=== PATIENT | female | born 1935 | race Caucasian/White ===

== ENCOUNTER 2016-09-13 16:16 | Emergency (ER) | payer BC ==
[2016-09-13] MEDS ORDERED: DIAZEPAM 5 MG/1 ML TUBX IVP ONE (16:49)
[2016-09-13 17:01] LABS: BASO % 0.8 % (0-6); EOS % 1.3 % (0-6); GRAN % 63.5 % (47-80); HEMATOCRIT 47.1 % (35.0-47.0); HEMOGLOBIN 15.6 gm/dl (11.6-16.0); LYMPH % 25.8 % (16-45); MEAN CELL VOLUME 90.9 fl (81-97); MEAN CORPUSCULAR HEMOGLOBIN 30.1 pg (27-33); MEAN CORPUSCULAR HGB CONC 33.1 g/dl (32-36); MEAN PLATELET VOLUME 9.6 fl (7.4-10.4); MONO % 8.6 % (0-9); PLATELET COUNT 372 K/uL (130-400); RED BLOOD COUNT 5.18 M/uL (3.80-5.40); RED CELL DISTRIBUTION WIDTH 14.5 % (11.5-14.5); WHITE BLOOD COUNT W/O DIFF 8.3 K/uL (4.2-12.2)
--- NOTE | 2016-09-13 17:09 | Emergency Department Record ---
History of Present Illness - General Chief Complaint: Fainted Stated Complaint: SYNCOPE Time Seen by Provider: 09/13/16 16:49 Source: Patient, RN notes reviewed Mode of Arrival: EMS - History of Present Illness Initial Comments: patient had pain in her legs and walked to [employer] and passed out at [employer] and was out for two minutes and no seizure activity and no chest pain and she is not on blood thinners. Patient is talking appropriately till done. Onset/Timin -: Minutes(s) Prodromal Symptoms: Lightheaded Duration of Episode: 3 -: Minutes(s) Injuries Sustained Associated with Event: LUE Current Symptoms: Other Treatments Prior to Arrival: None - Jamar Coma Scale Eye Response: (4) Open spontaneously Motor Response: (6) Obeys commands Verbal Response: (5) Oriented Jamar Total: 15 - Related Data Home Medications Medication Instructions Recorded Confirmed Last Taken Amlodipine Besylate [Norvasc] 5 mg PO DAILY 09/18/14 09/13/16 09/13/16 Hydrochlorothiazide [Hctz 25Mg] 25 mg PO DAILY 09/18/14 09/13/16 09/13/16 Naproxen Sodium [Anaprox Ds] 550 mg PO Q6H PRN 09/18/14 09/13/16 09/13/16 Polyethylene Glycol 3350 17 gm PO DAILY 09/18/14 09/13/16 09/13/16 Simvastatin [Zocor] 5 mg PO QHS 09/18/14 09/13/16 09/13/16 Allergies Allergy/AdvReac Type Severity Reaction Status Date / Time acetaminophen Allergy Intermediate RASH Verified 09/13/16 16:35 hydrocodone Allergy Intermediate RASH Verified 09/13/16 16:35 Sulfa (Sulfonamide Allergy Intermediate RASH Verified 09/13/16 16:35 Antibiotics) Travel Screening - Travel/Exposure Within Last 30 Days Have you traveled within the last 30 days?: No Review of Systems Reviewed: No additional complaints except as noted below Constitutional: Reports: As per HPI. Denies: Chills, Fever, Malaise, Night sweats, Weakness, Weight change Eyes: Reports: As per HPI. Denies: Eye discharge, Eye pain, Photophobia, Vision change ENT: Reports: As per HPI. Denies: Congestion, Dental pain, Ear pain, Epistaxis , Hearing loss, Throat pain Respiratory: Reports: As per HPI. Denies: Cough, Dyspnea, Hemoptysis, Stridor, Wheezes Cardiovascular: Reports: As per HPI. Denies: Arrhythmia, Chest pain, Dyspnea on exertion, Edema, Murmurs, Orthopnea, Palpitations, Paroxysmal nocturnal dyspnea, Rheumatic Fever, Syncope Endocrine: Reports: As per HPI. Denies: Fatigue, Heat or cold intolerance, Polydipsia, Polyuria Gastrointestinal: Reports: As per HPI. Denies: Abdominal pain, Constipation, Diarrhea, Hematemesis, Hematochezia, Melena, Nausea, Vomiting Genitourinary: Reports: As per HPI. Denies: Abnormal menses, Discharge, Dyspareunia, Dysuria, Frequency, Hematuria, Incontinence, Retention, Urgency Musculoskeletal: Reports: As per HPI. Denies: Arthralgia, Back pain, Gout, Joint swelling, Myalgia, Neck pain Skin: Reports: As per HPI. Denies: Bruising, Change in color, Change in hair/ nails, Lesions, Pruritus, Rash Neurological: Reports: As per HPI. Denies: Abnormal gait, Confusion, Headache, Numbness, Paresthesias, Seizure, Tingling, Tremors, Vertigo, Weakness Psychiatric: Reports: As per HPI. Denies: Anxiety, Auditory hallucinations, Depression, Homicidal thoughts, Suicidal thoughts, Visual hallucinations Hematological/Lymphatic: Reports: As per HPI. Denies: Anemia, Blood Clots, Easy bleeding, Easy bruising, Swollen glands Past Medical History - SOCIAL HISTORY Smoking Status: Never smoker Alcohol Use: None Drug Use: None - RESPIRATORY Hx Respiratory Disorders: No - CARDIOVASCULAR Hx Cardio Disorders: Yes Hx Hypertension: Yes - NEURO Hx Neuro Disorders: No - GI Hx GI Disorders: Yes Hx Hiatal Hernia: Yes Hx Irritable Bowel: Yes - Hx Genitourinary Disorders: No - ENDOCRINE Hx Endocrine Disorders: No - MUSCULOSKELETAL Hx Musculoskeletal Disorders: Yes Hx Fibromyalgia: Yes - PSYCH Hx Psych Problems: No - HEMATOLOGY/ONCOLOGY Hx Hematology/Oncology Disorders: Yes Hx Cancer: Yes (left breast) Hx Chemotherapy: No Hx Radiation Therapy: No Family Medical History Any Significant Family History?: Yes Hx Cancer: Mother, Brother/Sister, Grandparents Physical Exam - General General Appearance: Alert, Oriented x3, Cooperative, No acute distress - Head Head exam: Normal inspection - Eye Eye exam: Normal appearance, PERRL Pupils: Normal accommodation - ENT ENT exam: Normal exam, Mucous membranes moist, Normal external ear exam, Normal orophraynx, TM's normal bilaterally Ear exam: Normal external inspection. negative: External canal tenderness Nasal Exam: Normal inspection. negative: Discharge, Sinus tenderness Mouth exam: Normal external inspection, Tongue normal Teeth exam: Normal inspection. negative: Dental caries Throat exam: Normal inspection. negative: Tonsillar erythema, Tonsillar exudate - Neck Neck exam: Normal inspection, Full ROM, Tenderness (cramping in both leg. ) - Respiratory Respiratory exam: Normal lung sounds bilaterally. negative: Respiratory distress - Cardiovascular Cardiovascular Exam: Regular rate, Normal rhythm, Normal heart sounds - GI/Abdominal GI/Abdominal exam: Soft, Normal bowel sounds. negative: Tenderness - Rectal Rectal exam: Deferred - exam: Deferred - Extremities Extremities exam: Normal inspection, Full ROM, Normal capillary refill. negative: Tenderness - Back Back exam: Reports: Normal inspection, Full ROM. Denies: Muscle spasm, Rash noted, Tenderness - Neurological Neurological exam: Alert, Normal gait, Oriented X3, Reflexes normal - Psychiatric Psychiatric exam: Normal affect, Normal mood - Skin Skin exam: Dry, Intact, Normal color, Warm Course Vital Signs 09/13/16 16:28 Temperature 98.1 F Pulse Rate 73 Respiratory 20 Rate Blood Pressure 158/76 Pulse Ox 94 L Medical Decision Making - Data Complexity MDM Data: Labs Ordered and/or Reviewed, X-Ray Ordered and/or Reviewed (CT of head neg), EKG Ordered and/or Reviewed (No acute changes) - Lab Data Result diagrams: 09/13/16 16:10 09/13/16 16:10 Lab Results 09/13/16 Range/Units 16:10 WBC 8.3 (4.2-12.2) K/uL RBC 5.18 (3.80-5.40) M/uL Hgb 15.6 (11.6-16.0) gm/dl Hct 47.1 H (35.0-47.0) % MCV 90.9 (81-97) fl MCH 30.1 (27-33) pg MCHC 33.1 (32-36) g/dl RDW 14.5 (11.5-14.5) % Plt Count 372 (130-400) K/uL MPV 9.6 (7.4-10.4) fl Gran % 63.5 (47-80) % Lymphocytes % 25.8 (16-45) % Monocytes % 8.6 (0-9) % Eosinophils % 1.3 (0-6) % Basophils % 0.8 (0-6) % Disposition Clinical Impression: Vasovagal episode, Syncope and collapse Disposition: Home, Self-Care Condition: (1) Good Instructions: Syncope (ED) Additional Instructions: follow up with Dr. Macedo on sunday at 10 am . tylenol for leg pains Forms: Patient Portal Access Time of Disposition: 18:35
[2016-09-13 17:21] LABS: ANION GAP 12.4 (7-16); BLOOD UREA NITROGEN 28 mg/dL (7-17); CARBON DIOXIDE 24.6 mmol/L (22-30); CREATININE 1.1 mg/dL (0.52-1.04); EST GLOMERULAR FILTRATION RATE 51 ml/min; GLUCOSE,RANDOM 113 mg/dL (70-110)
[2016-09-13 17:33] LABS: TROPONIN I < 0.012 ng/mL (0.00-0.034)
--- NOTE | 2016-09-15 10:52 | CT SCAN REPORT ---
EXAM: HEAD CT WITHOUT CONTRAST HISTORY: SYNCOPE, PASSED OUT ONE HOUR AGO. TECHNIQUE: Axial CT scan of the head was performed without IV contrast. Comparison: Head CT 09/18/14. FINDINGS: No definite acute intracranial hemorrhage identified. No focal mass effect or midline shift apparent. Some generalized atrophy as before. No definite acute infarct or intracranial mass lesion is seen. Thin extraaxial low attenuation fluid collections overlying the frontal lobes bilaterally appears to have been present previously as well and is likely just related to bilateral frontal lobe atrophy with corresponding dilatation of the overlying subarachnoid space. No depressed calvarial fracture is evident. IMPRESSION: 1. NO DEFINITE ACUTE INTRACRANIAL HEMORRHAGE OR FOCAL MASS EFFECT EVIDENT. 2. GENERALIZED ATROPHY, ALSO PRESENT PREVIOUSLY. [facility]: [id number] [facility]
== END 2016-09-13 18:53 | disposition home or self-care (01) ==
LOC: ER 16:16
DX: R55 Syncope and collapse (principal)
CPT/HCPCS: 70450; 80048; 84484; 85025; 85730; 93005; 93010; 99283

== ENCOUNTER 2016-11-09 07:32 | Day surgery (SDC) | payer BC ==
[~2016-11-09 07:32] MED LIST: CIPROFLOXACIN HCL 0.0015 GM, PHENYLEPHRINE HCL 0.0125 GM, KETOROLAC TROMETHAMINE 0.0006... MC ONE
[2016-11-09] MEDS ORDERED: LIDOCAINE 2% MDV (20MG/ML) 20ML VIAL IV ONE ×2 (14:32→15:00)
[2016-11-09] MEDS ORDERED: PROPOFOL 10 MG/ML VIAL IV ONE (14:32)
[2016-11-09] MEDS ORDERED: EPINEPHRINE 1 MG/ML AMPUL SQ ONE (15:00)
[2016-11-09] MEDS ORDERED: NEOMYCIN/POLY./DEXAM OPTH OINT OPTH ONE (15:00)
[2016-11-09] MEDS ORDERED: TETRACAINE HCL 0.5% 15 ML OPTH BTL OPTH ONE (15:00)
--- NOTE | 2016-11-11 01:07 | Operative Note ---
DATE OF PROCEDURE: 11/09/16. PREOPERATIVE DIAGNOSIS: Nuclear sclerotic cataract, right eye. POSTOPERATIVE DIAGNOSIS: Nuclear sclerotic cataract, right eye. OPERATION: Phacoemulsification of cataractous lens with implantation of intraocular lens. LENS IMPLANT USED: Ahn Model PCB00 + 20.0 diopters. COMPLICATIONS: None. PROCEDURE IN DETAIL: Following a retrobulbar and facial block, the patient was prepped and draped in the usual fashion for eye surgery. A lid speculum was placed in the right eye after which a 2.4 mm tunnel wound was placed at the temporal limbus and dissected into clear cornea. A paracentesis was placed at 2 o'clock hours to the left and right of the initial incision and the chamber deepened with Viscoelastic. The keratome was then used to enter the anterior chamber after which the continuous circular capsulorrhexis was accomplished without difficulty using a bent needle and a Utrata forceps. Hydrodissection and hydrodelineation of the lens was performed after which the nucleus of the lens was removed using the Phaco handpiece in the [id number] technique. The residual cortical material was irrigated and aspirated from the eye after which the bag and chamber were re-examined. The bag was re-inflated with Viscoelastic and the intraocular lens injected into the capsular bag where it centered well. The Viscoelastic was then copiously irrigated and aspirated from the eye after which the temporal tunnel wound and paracentesis were hydrated and the wounds were examined. They were noted to be watertight. The lid speculum was removed from the eye and the eye patched and shielded. The patient was transferred to the recovery room in satisfactory condition and given an appointment to be reexamined in the clinic later today or as directed by Dr. Garcia. [facility]BER: [id number] [facility]
== END 2016-11-09 10:25 | disposition home or self-care (01) ==
LOC: SUR 07:32
PROVIDERS: ATTEND Ophthalmology
DX: H25.11 Age-related nuclear cataract, right eye (principal); I10 Essential (primary) hypertension; E78.00 Pure hypercholesterolemia, unspecified
CPT/HCPCS: J0171

== ENCOUNTER 2016-12-07 07:20 | Day surgery (SDC) | payer BC ==
[2016-12-07] MEDS ORDERED: EPINEPHRINE 1 MG/ML AMPUL SQ ONE (13:37)
[2016-12-07] MEDS ORDERED: NEOMYCIN/POLY./DEXAM OPTH OINT OPTH ONE (13:37)
[2016-12-07] MEDS ORDERED: TETRACAINE HCL 0.5% 15 ML OPTH BTL OPTH ONE (13:37)
[2016-12-07] MEDS ORDERED: PROPOFOL 10 MG/ML VIAL IV ONE (13:37)
[2016-12-07] MEDS ORDERED: LIDOCAINE 2% MDV (20MG/ML) 20ML VIAL IV ONE ×2 (13:37)
[2016-12-07] MEDS ORDERED: TETRACAINE HCL 0.5% OPTH 2ML SOLU OPTH ONE (13:37)
[2016-12-07] MEDS ORDERED: LIDOCAINE 1% MPF 100MG/10ML STERILE-PAK AMPULE IV ONE (13:37)
[2016-12-07] MEDS ORDERED: CIPROFLOXACIN HCL 0.0015 GM, PHENYLEPHRINE HCL 0.05 GM, KETOROLAC TROMETHAMINE 0.000625 GM MC ONE ×5 (16:00)
--- NOTE | 2016-12-07 19:55 | Operative Note ---
DATE OF PROCEDURE: 12/07/16. PREOPERATIVE DIAGNOSIS: Nuclear sclerotic cataract, left eye. POSTOPERATIVE DIAGNOSIS: Nuclear sclerotic cataract, left eye. OPERATION: Phacoemulsification of cataractous lens with implantation of intraocular lens. LENS IMPLANT USED: Ahn Model PCB00 + 20.5 diopters. COMPLICATIONS: None. PROCEDURE IN DETAIL: Following a retrobulbar and facial block, the patient was prepped and draped in the usual fashion for eye surgery. A lid speculum was placed in the left eye after which a 2.4 mm tunnel wound was placed at the temporal limbus and dissected into clear cornea. A paracentesis was placed at 2 o'clock hours to the left and right of the initial incision and the chamber deepened with Viscoelastic. The keratome was then used to enter the anterior chamber after which the continuous circular capsulorrhexis was accomplished without difficulty using a bent needle and a Utrata forceps. Hydrodissection and hydrodelineation of the lens was performed after which the nucleus of the lens was removed using the Phaco handpiece in the [id number] technique. The residual cortical material was irrigated and aspirated from the eye after which the bag and chamber were re-examined. The bag was re-inflated with Viscoelastic and the intraocular lens injected into the capsular bag where it centered well. The Viscoelastic was then copiously irrigated and aspirated from the eye after which the temporal tunnel wound and paracentesis were hydrated and the wounds were examined. They were noted to be watertight. The lid speculum was removed from the eye and the eye patched and shielded. The patient was transferred to the recovery room in satisfactory condition and given an appointment to be reexamined in the clinic later today or as directed by Dr. Garcia. J[facility] NUMBER: [id number] [facility]
== END 2016-12-07 10:20 | disposition home or self-care (01) ==
LOC: SUR 07:20
PROVIDERS: ATTEND Ophthalmology
DX: H25.12 Age-related nuclear cataract, left eye (principal); E78.00 Pure hypercholesterolemia, unspecified; I10 Essential (primary) hypertension
CPT/HCPCS: J0171; J3490

== ENCOUNTER 2017-04-09 15:10 | Emergency (ER) | payer BC ==
[2017-04-09] MEDS ORDERED: ONDANSETRON HCL IV 4 MG/2 ML VIAL IV ONE (16:12)
[2017-04-09] MEDS ORDERED: SODIUM CHLORIDE 0.9% 500 ML IV ONE (16:12)
[2017-04-09] MEDS ORDERED: MORPHINE SULFATE 5 MG/ML PFS IVP ONE ×2 (16:14→18:13)
[2017-04-09 17:17] LABS: HEMATOCRIT 46.9 % (35.0-47.0); HEMOGLOBIN 16.2 gm/dl (11.6-16.0); MEAN CELL VOLUME 91.4 fl (81-97); MEAN CORPUSCULAR HGB CONC 34.5 g/dl (32-36); MEAN PLATELET VOLUME 9.6 fl (7.4-10.4); PLATELET COUNT 391 K/uL (130-400); RED BLOOD COUNT 5.13 M/uL (3.80-5.40); RED CELL DISTRIBUTION WIDTH 14.3 % (11.5-14.5); WHITE BLOOD COUNT W/O DIFF 9.1 K/uL (4.2-12.2)
--- NOTE | 2017-04-09 17:27 | Emergency Department Record ---
History of Present Illness - General Chief Complaint: Abdominal Pain Stated Complaint: constipation, abd pain Time Seen by Provider: 04/09/17 16:07 Source: Patient, Family Mode of Arrival: EMS Limitations: No limitations - History of Present Illness Initial Comments: pt has abd pain that is at times severe and crampy. she has had frequent problems like this in the past and has a hx of a bowel obstruction that required surgery. she has had no bm since 03/29. she vomited last night and states it was dark in color. she is distended MD Complaint: Abdominal pain Onset/Timin -: Days(s) Location: Diffuse Severity: Moderate Consistency: Constant, Getting worse Improves With: Nothing Worsens With: Nothing Associated Symptoms: Vomiting - Related Data Patient : No Allergies Allergy/AdvReac Type Severity Reaction Status Date / Time hydrocodone Allergy Intermediate RASH Verified 04/09/17 15:22 Sulfa (Sulfonamide Allergy Intermediate RASH Verified 04/09/17 15:22 Antibiotics) Travel Screening - Travel/Exposure Within Last 30 Days Have you traveled within the last 30 days?: No - Travel/Exposure Within Last Year Have you traveled outside the [place] in the last year?: No - Additonal Travel Details Have you been exposed to anyone with a communicable illness?: No - Travel Symptoms Symptom Screening: None Review of Systems Reviewed: No additional complaints except as noted below Constitutional: Reports: As per HPI. Denies: Chills, Fever, Malaise, Night sweats, Weakness, Weight change Eyes: Reports: As per HPI. Denies: Eye discharge, Eye pain, Photophobia, Vision change ENT: Reports: As per HPI. Denies: Congestion, Dental pain, Ear pain, Epistaxis , Hearing loss, Throat pain Respiratory: Reports: As per HPI. Denies: Cough, Dyspnea, Hemoptysis, Stridor, Wheezes Cardiovascular: Reports: As per HPI. Denies: Arrhythmia, Chest pain, Dyspnea on exertion, Edema, Murmurs, Orthopnea, Palpitations, Paroxysmal nocturnal dyspnea, Rheumatic Fever, Syncope Endocrine: Reports: As per HPI. Denies: Fatigue, Heat or cold intolerance, Polydipsia, Polyuria Gastrointestinal: Reports: As per HPI. Denies: Abdominal pain, Constipation, Diarrhea, Hematemesis, Hematochezia, Melena, Nausea, Vomiting Genitourinary: Reports: As per HPI. Denies: Abnormal menses, Discharge, Dyspareunia, Dysuria, Frequency, Hematuria, Incontinence, Retention, Urgency Musculoskeletal: Reports: As per HPI. Denies: Arthralgia, Back pain, Gout, Joint swelling, Myalgia, Neck pain Skin: Reports: As per HPI. Denies: Bruising, Change in color, Change in hair/ nails, Lesions, Pruritus, Rash Neurological: Reports: As per HPI. Denies: Abnormal gait, Confusion, Headache, Numbness, Paresthesias, Seizure, Tingling, Tremors, Vertigo, Weakness Psychiatric: Reports: As per HPI. Denies: Anxiety, Auditory hallucinations, Depression, Homicidal thoughts, Suicidal thoughts, Visual hallucinations Hematological/Lymphatic: Reports: As per HPI. Denies: Anemia, Blood Clots, Easy bleeding, Easy bruising, Swollen glands Past Medical History - SOCIAL HISTORY Smoking Status: Never smoker Alcohol Use: None Drug Use: None - RESPIRATORY Hx Respiratory Disorders: No - CARDIOVASCULAR Hx Cardio Disorders: Yes Hx Hypertension: Yes Comment:: high cholesterol - NEURO Hx Neuro Disorders: Yes Hx Headaches: Yes (in past.) Comment:: severe leg cramps at times unknown etiology. - GI Hx GI Disorders: Yes Hx Hiatal Hernia: Yes Hx Irritable Bowel: Yes Hx Ulcer: Yes (esophageal) Comment:: GI tract doesnt work well - Hx Genitourinary Disorders: No - ENDOCRINE Hx Endocrine Disorders: No - MUSCULOSKELETAL Hx Musculoskeletal Disorders: Yes Hx Fibromyalgia: Yes - PSYCH Hx Psych Problems: No - HEMATOLOGY/ONCOLOGY Hx Hematology/Oncology Disorders: Yes Hx Cancer: Yes (left breast) Hx Chemotherapy: No Hx Radiation Therapy: No Family Medical History Any Significant Family History?: Yes Hx Cancer: Mother, Brother/Sister, Grandparents Physical Exam - General General Appearance: Alert, Oriented x3, Cooperative, No acute distress - Head Head exam: Normal inspection - Eye Eye exam: Normal appearance, PERRL Pupils: Normal accommodation - ENT ENT exam: Normal exam, Mucous membranes moist, Normal external ear exam, Normal orophraynx, TM's normal bilaterally Ear exam: Normal external inspection. negative: External canal tenderness Nasal Exam: Normal inspection. negative: Discharge, Sinus tenderness Mouth exam: Normal external inspection, Tongue normal Teeth exam: Normal inspection. negative: Dental caries Throat exam: Normal inspection. negative: Tonsillar erythema, Tonsillar exudate - Neck Neck exam: Normal inspection, Full ROM. negative: Tenderness - Respiratory Respiratory exam: Normal lung sounds bilaterally. negative: Respiratory distress - Cardiovascular Cardiovascular Exam: Regular rate, Normal rhythm, Normal heart sounds - GI/Abdominal GI/Abdominal exam: Soft, Normal bowel sounds. negative: Tenderness - Rectal Rectal exam: Deferred - exam: Deferred - Extremities Extremities exam: Normal inspection, Full ROM, Normal capillary refill. negative: Tenderness - Back Back exam: Reports: Normal inspection, Full ROM. Denies: Muscle spasm, Rash noted, Tenderness - Neurological Neurological exam: Alert, Normal gait, Oriented X3, Reflexes normal - Psychiatric Psychiatric exam: Normal affect, Normal mood - Skin Skin exam: Dry, Intact, Normal color, Warm Course Vital Signs 04/09/17 15:12 Temperature 98.3 F Pulse Rate 69 Respiratory 18 Rate Blood Pressure 139/71 Pulse Ox 98 - Reevaluation(s) Reevaluation #1: 04/09/17 18:56 pt vomited coffee ground. it was gastrocult positive. Reevaluation #2: 04/09/17 19:40 d/w dr ramirez Medical Decision Making - Lab Data Result diagrams: 04/09/17 14:50 04/09/17 14:50 Disposition Disposition: Transfer Clinical Impression: SBO (small bowel obstruction) GI bleed Qualifiers: GI bleed type/associated pathology: unspecified gastrointestinal hemorrhage type Qualified Code(s): K92.2 - Gastrointestinal hemorrhage, unspecified Disposition: Acute Care Hospital Transfer Transfer To: [facility] Reason For Transfer: sbo, gi bleed Accepting Physician: dr ramirez Time Discussed w/Accepting Physician: 19:41 Forms: Patient Portal Access Quality - Quality Measures Quality Measures: N/A - Blood Pressure Screening Does Patient Have Any of the Following: No Blood Pressure Classification: Pre-Hypertensive BP Reading Systolic Measurement: 139 Diastolic Measurement: 71 Screening for High Blood Pressure: < Pre-Hypertensive BP, F/U Documented > [ [id number]] Pre-Hypertensive Follow-up Interventions: Follow-up with rescreen every year.
[2017-04-09 17:37] LABS: MEAN CORPUSCULAR HEMOGLOBIN 31.5 pg (27-33)
[2017-04-09 17:47] LABS: ALB/GLOB RATIO 1.5 (1.1-1.8); ALBUMIN 4.8 g/dL (4.0-5.0); TOTAL PROTEIN 7.9 g/dL (6.6-8.7)
[2017-04-09 17:48] LABS: BILIRUBIN,TOTAL 1.8 mg/dL (0.2-1.0)
[2017-04-09] MEDS ORDERED: PROMETHAZINE HCL 6.25 MG in 0.9 % SODIUM CHLORIDE 100ML 100 ML IVPB ONE (18:27)
--- NOTE | 2017-04-10 09:25 | CT SCAN REPORT ---
EXAM: CT OF THE ABDOMEN AND PELVIS WITH CONTRAST HISTORY: ABDOMINAL PAIN OVER THE PAST TWENTY-FOUR HOURS. PREVIOUS APPENDECTOMY AND BOWEL OBSTRUCTION. PREVIOUS BREAST CANCER. TECHNIQUE: Routine CT images of the abdomen and pelvis were obtained following the intravenous administration of contrast, the amount and type of contrast are noted in the medical record. Comparison: CT of the chest 08/22/07. FINDINGS: There are noncalcified pulmonary nodules within the left lower lobe measuring 5 mm size range, not significantly changed dating back to 2007 consistent with a benign process. The liver, gallbladder, pancreas, spleen, and adrenals are unremarkable. The kidneys enhance and excrete contrast normally. There is a large exophytic cyst lower pole right kidney measuring 8 cm size range, cyst is simple fluid density. There appears to be a small left diaphragmatic hernia containing portions of the stomach. The stomach is distended as is the proximal small bowel. The distal small bowel loops are decompressed. Findings are consistent with small bowel obstruction. Transition point appears to be well seen within the central abdomen on coronal image 48, axial image 64, and sagittal image [id number]. There is swirling of the mesentery and bowel loops within this region and a component of internal hernia is not excluded. The bowel wall continues to enhance normally with contrast. There is minimal mesenteric edema and fluid. The colon appears unremarkable other than a moderate volume of stool is noted. The bladder is unremarkable. The uterus is present and retroverted. The aorta is tortuous though enhanced normally with contrast. Moderate scattered atherosclerotic calcification. No abdominal or pelvic lymphadenopathy. The abdominal wall soft tissues are unremarkable. No acute osseous abnormality. Moderate scattered lumbar spondylosis. IMPRESSION: 1. FINDINGS CONSISTENT WITH SMALL BOWEL OBSTRUCTION. PLEASE NOTE TRANSITION POINT IS WELL SEEN WITHIN THE CENTRAL ABDOMEN/PELVIS WHERE THERE IS SOME SWIRLING OF THE MESENTERY AND A COMPONENT OF INTERNAL HERNIA NOT EXCLUDED. 2. CHRONIC FINDINGS ABOVE. [facility]: [id number] [facility]
== END 2017-04-09 20:20 | disposition short-term general hospital (02) ==
LOC: ER 15:10
DX: K56.609 Unspecified intestinal obstruction, unspecified as to partial versus complete obstruction (principal); K92.0 Hematemesis; K59.00 Constipation, unspecified; Z85.3 Personal history of malignant neoplasm of breast
CPT/HCPCS: 99285 ×2; 96376; 96374; 96375; 83605; 83690; 80053; 85027; 74177; Q9967; J2405; J2270

== ENCOUNTER 2018-06-16 15:48 | Emergency (ER) | payer BC ==
--- NOTE | 2018-06-16 15:57 | Emergency Department Record ---
History of Present Illness - General Chief Complaint: Abdominal Pain Stated Complaint: ABDOMINAL PAIN Time Seen by Provider: 06/16/18 15:54 Source: Patient Mode of Arrival: Ambulatory Limitations: No limitations - History of Present Illness Initial Comments: 82 yo female presents with abdominal pain. The onset of the pain was late this morning. The pain is diffuse and seems to come and go. She has some loss of appetite. She did have two small bowel movements this morning. She denies vomiting. She ate a banana and took Miralax this morning. She reports a history of prior bowel obstruction. No other recent illness, cough, or changes in her health. MD Complaint: Abdominal pain -: Hour(s) Location: Diffuse Radiation: Back, Other (Diffuse) Migration to: Other (diffuse) Quality: Cramping Consistency: Constant Improves With: Nothing Worsens With: Eating Context: Other Associated Symptoms: Anorexia - Related Data Home Medications Medication Instructions Recorded Confirmed Last Taken Polyethylene Glycol 3350 [Miralax] 1 cap PO DAILY 06/16/18 06/16/18 1 Day Ago ~06/15/18 Allergies Allergy/AdvReac Type Severity Reaction Status Date / Time hydrocodone Allergy Intermediate RASH Verified 06/16/18 15:57 Sulfa (Sulfonamide Allergy Intermediate RASH Verified 06/16/18 15:57 Antibiotics) Review of Systems Constitutional: Denies: Chills, Fever, Malaise, Weakness Eyes: Denies: Eye discharge, Eye pain, Photophobia, Vision change ENT: Denies: Congestion, Throat pain Respiratory: Denies: Cough, Dyspnea, Hemoptysis, Stridor, Wheezes Cardiovascular: Denies: Chest pain, Palpitations, Syncope Endocrine: Denies: Fatigue, Polydipsia, Polyuria Gastrointestinal: Reports: Abdominal pain, Nausea, Vomiting. Denies: Diarrhea Genitourinary: Denies: Dysuria Musculoskeletal: Reports: Back pain. Denies: Arthralgia, Joint swelling, Myalgia, Neck pain Skin: Denies: Bruising, Change in color, Rash Neurological: Denies: Headache Psychiatric: Denies: Anxiety Hematological/Lymphatic: Denies: Blood Clots, Easy bleeding, Easy bruising, Swollen glands Past Medical History - SOCIAL HISTORY Smoking Status: Never smoker Drug Use: None - RESPIRATORY Hx Respiratory Disorders: No - CARDIOVASCULAR Hx Cardio Disorders: Yes Hx Hypertension: Yes Comment:: high cholesterol - NEURO Hx Neuro Disorders: Yes Hx Headaches: Yes (in past.) Comment:: severe leg cramps at times unknown etiology. - GI Hx GI Disorders: Yes Hx Hiatal Hernia: Yes Hx Irritable Bowel: Yes Hx Ulcer: Yes (esophageal) Comment:: GI tract doesnt work well - Hx Genitourinary Disorders: No - ENDOCRINE Hx Endocrine Disorders: No - MUSCULOSKELETAL Hx Musculoskeletal Disorders: Yes Hx Fibromyalgia: Yes - PSYCH Hx Psych Problems: No - HEMATOLOGY/ONCOLOGY Hx Hematology/Oncology Disorders: Yes Hx Cancer: Yes (left breast) Hx Chemotherapy: No Hx Radiation Therapy: No Family Medical History Hx Cancer: Mother, Brother/Sister, Grandparents Physical Exam - General General Appearance: Alert, Oriented x3, Cooperative, No acute distress Limitations: No limitations - Head Head exam: Atraumatic, Normal inspection - Eye Eye exam: Normal appearance. negative: Conjunctival injection, Scleral icterus - ENT ENT exam: Normal exam, Mucous membranes moist Ear exam: Normal external inspection Nasal Exam: Normal inspection Mouth exam: Normal external inspection - Neck Neck exam: Normal inspection - Respiratory Respiratory exam: Normal lung sounds bilaterally. negative: Accessory muscle use, Respiratory distress, Rhonchi, Stridor, Wheezes - Cardiovascular Cardiovascular Exam: Regular rate, Normal rhythm, Normal heart sounds - GI/Abdominal GI/Abdominal exam: Soft, Tenderness, Other (At this time the abdomen is soft but diffusely tender.) Course - Reevaluation(s) Reevaluation #1: 06/16/18 17:02 The CBC was reviewed and was normal The CMP was reviewed and was manuela The Lactic acid is normal Lipase is normal The patient vomited about 300-500 cc with symptomatic relief 06/16/18 17:48 The radiologist called report. The CT is consistent with a high grade mechanical small bowel obstruction with a transition point in the mid lower mesentery, there is a swirl pattern in the mesentery raising the concern for internal hernia although no other dilated small bowel loops suggesting closed loop. The pancreatic ducts ends abruptly. He recommends follow up dedicated pancreatic imaging to rule out mass. 06/16/18 17:51 The patient was re-examined. Her abdomen remains soft. Her pain level is 2/ 10. Her nausea is 0/10. Dr Rainey paged to discuss the case. 06/16/18 17:57 Dr Rainey [place] [facility] [place]. Medical Decision Making - Lab Data Result diagrams: 06/16/18 16:00 06/16/18 16:00 Disposition Disposition: Transfer Clinical Impression: Small bowel obstruction Disposition: Acute Care Hospital [place] [facility] [place] For Transfer: [place] Accepting Physician: Brigid Time Discussed w/Accepting Physician: 17:58 Condition: (2) Stable Forms: Patient Portal Access Time of Disposition: 17:58 Quality - Quality Measures Quality Measures: N/A - Blood Pressure Screening Does Patient Have Any of the Following: Active Dx of HTN Blood Pressure Classification: Hypertensive Reading Systolic Measurement: 166 Diastolic Measurement: 104 Screening for High Blood Pressure: Patient Exclusion, Hx of HTN [G9744]
[2018-06-16] MEDS: ONDANSETRON HCL IV 4 MG/2 ML VIAL IVP ONE (16:10)
[2018-06-16] MEDS: 0.9 % SODIUM CHLORIDE 1000ML 1,000 ML IV ONE (16:11)
[2018-06-16] MEDS: ACETAMINOPHEN 1,000 MG/100 ML BTL IVPB ONE (16:12)
[2018-06-16 16:22] LABS: BASO % 0.7 % (0-6); EOS % 1.1 % (0-6); GRAN % 68.6 % (47-80); HEMATOCRIT 47.6 % (35.0-47.0); HEMOGLOBIN 16.3 gm/dl (11.6-16.0); LYMPH % 21.5 % (16-45); MEAN CELL VOLUME 92.2 fl (81-97); MEAN CORPUSCULAR HGB CONC 34.2 g/dl (32-36); MONO % 8.1 % (0-9); PLATELET COUNT 419 K/uL (130-400); RED BLOOD COUNT 5.16 M/uL (3.80-5.40); RED CELL DISTRIBUTION WIDTH 14.6 % (11.5-14.5); WHITE BLOOD COUNT W/O DIFF 9.2 K/uL (4.2-12.2)
[2018-06-16 16:33] LABS: MEAN CORPUSCULAR HEMOGLOBIN 31.5 pg (27-33)
[2018-06-16 16:34] LABS: BLOOD UREA NITROGEN 23 mg/dL (8-23); CREATININE 0.8 mg/dL (0.5-0.9); EST GLOMERULAR FILTRATION RATE > 60 mL/min; LIPASE 33 U/L (13-60); TOTAL PROTEIN 8.1 g/dL (6.6-8.7)
[2018-06-16 16:35] LABS: GLUCOSE,RANDOM 107 mg/dL (74-109)
[2018-06-16 16:39] LABS: ALB/GLOB RATIO 1.4 (1.1-1.8); ALBUMIN 4.7 g/dL (4.0-5.0); ALKALINE PHOSPHATASE 99 U/L (35-104); ALT/SGPT 24 U/L (<33); AST/SGOT 31 U/L (10.0-35.0); PARTIAL THROMBOPLASTIN TIME 27.3 SECONDS (24.5-39.1)
[2018-06-16 16:40] LABS: LACTIC ACID 1.7 mmol/L (0.5-2.2)
[2018-06-16 18:42] LABS: URINE APPEARANCE CLEAR; URINE BILIRUBIN NEGATIVE (NEGATIVE); URINE BLOOD NEGATIVE (NEGATIVE); URINE COLOR YELLOW; URINE GLUCOSE (UA) NEGATIVE (NEGATIVE); URINE KETONE TRACE (NEGATIVE); URINE LEUKOCYTE ESTERASE NEGATIVE (NEGATIVE); URINE NITRITE NEGATIVE (NEGATIVE); URINE PROTEIN NEGATIVE (NEGATIVE); URINE UROBILINOGEN 0.2 E.U./dL (0.20 - 1.00)
[2018-06-16] MEDS: MORPHINE SULFATE 10 MG/ML VIAL IVP ONE (20:25)
--- NOTE | 2018-06-19 12:37 | CT SCAN REPORT ---
EXAM: CT OF THE ABDOMEN AND PELVIS WITH CONTRAST HISTORY: UPPER ABDOMINAL PAIN THAT IS NOW MOVING DOWNWARDS AND THROUGH HER BACK WITH NAUSEA AND VOMITING. HISTORY OF BREAST SURGERY, HISTORY OF APPENDECTOMY. TECHNIQUE: Standard CT imaging of the abdomen and pelvis was obtained with intravenous contrast. Coronal and sagittal reformations are provided. Comparison: 04/09/17. FINDINGS: There is a 5 mm nodule in the left lung based that is stable from 04/26. Coronary artery calcifications are noted. The liver and gallbladder appear normal. No bile duct dilatation. There is new mild dilatation of the distal most pancreatic duct in the pancreatic tail measuring up to 14 mm in diameter, which terminates abruptly in the pancreatic body. The proximal pancreatic duct is normal in caliber. These findings raise the possibility for an occult mass in the pancreatic body. There is no surrounding inflammation. The spleen is normal in size. The adrenal glands are normal. There is an 8 cm cyst in the right kidney. The kidneys otherwise appear normal. There is a diverticulum of the proximal duodenum. There are multiple mildly dilated loops of small bowel with a transition point to decompress small bowel in the lower mid mesentery where there is a swirl in the mesentery. No other dilated loops of small bowel are seen, and there is no significant edema in the mesentery. Moderate stool remains throughout the colon. No pericolonic inflammation. No pelvic masses. The bladder is unremarkable. No retroperitoneal or mesenteric adenopathy. No free fluid or free air. No destructive osseous lesion is identified. The aorta is heavily calcified without aneurysm. IMPRESSION: 1. FINDINGS OF HIGH GRADE MECHANICAL SMALL BOWEL OBSTRUCTION WITH A TRANSITION POINT IN THE LOWER MID MESENTERY WHERE THERE IS A SWIRL IN THE MESENTERY, WHICH RAISES THE POSSIBILITY FOR AN INTERNAL HERNIA. NO CURRENT EVIDENCE FOR A CLOSED LOOP PHYSIOLOGY, THE REMAINING MORE DISTAL SMALL BOWEL IS ALL DECOMPRESSED. 2. INTERVAL DEVELOPMENT OF A MILDLY DILATED MAIN PANCREATIC DUCT IN THE PANCREATIC TAIL WITH ABRUPT CUT OFF AT THE PANCREATIC BODY RAISING THE POSSIBILITY FOR AN OCCULT MASS. SHORT TERM FOLLOW-UP PANCREATIC PROTOCOL CT OR MRI IS RECOMMENDED IN 2-3 MONTHS. RESULTS DISCUSSED WITH THE PATIENT'S [facility] EMERGENCY ROOM PROVIDER AT 5:41 P.M ON 06/16/18. JOB NUMBER: [id number] MTDD
== END 2018-06-16 20:30 | disposition short-term general hospital (02) ==
LOC: ER 15:48
DX: K56.609 Unspecified intestinal obstruction, unspecified as to partial versus complete obstruction (principal); R11.2 Nausea with vomiting, unspecified; I10 Essential (primary) hypertension
CPT/HCPCS: 99285 ×2; 96365; 96375; 96361; 83605; 83690; 85025; 85730; 85610; 80053; 81003; 74177; Q9967; J2405; J2270; J7030